=== PATIENT | male | born 1990 | race Hispanic/Latino ===

== ENCOUNTER 2016-09-01 12:50 | Emergency (ER) | payer OTHER ==
--- NOTE | 2016-09-01 13:41 | XRay Report ---
Left foot 3 views: Pain foot. Status post fall. Findings: No articular abnormality. No periosteal reaction, lytic lesion or soft tissue calcification. Impression: No evidence of acute fracture.
--- NOTE | 2016-09-01 15:14 | Emergency Department Report ---
Entered by GRETCHEN MARROQUIN, acting as scribe for GELA RUSH NP. Chief Complaint: Extremity Injury, Lower Stated Complaint: LEFT FOOT INJURY Time Seen by Provider: 09/01/16 15:03 - HPI History of Present Illness: Patient presents to the ED c/o of left foot pain secondary to an injury 2 weeks ago. Patient states that he was skateboarding and subsequently fell. Consumes moderate amounts of EtOH daily. PMHx consists of depression and notes he's non- compliant with depression medication. - ROS Review of Systems: All other systems reviewed are negative unless stated in HPI above. - Exam Vital Signs: Vital Signs 09/01/16 14:39 Temperature 98.2 F Pulse Rate 101 H Blood Pressure 120/76 O2 Sat by Pulse 100 Oximetry Physical Exam: General: alert and oriented x 3 Extremeties: good pulses, good capillary refill. Left lateral ankle tenderness. Left anterior toes tenderness. Neurologic: Absent: normal mood, Present: suicidal ideation, denies homicidal ideation; antalgic. Skin: no erythema or echhymosis on left ankle MSE screening note: Focused history and physical exam performed. Due to findings the following was ordered: THINKS DAILY OF KILLING SELF HAS PLAN OF HOW BUT WILL NOT TELL ME CRYING DAILY ETOH MOM STATES HE DRINKS UNTIL HE BLACKS OUT HURT L FOOT 2 W AGO SKATEBOARDING. NO POINT TENDERNESS XRAY NEG WALKING IF DANCING. PSYCH EVAL MOM AGREES HE NEEDS HELP. LEXAPRO/ RESTORIL/TRAZADONE/TEMPEZEM- PER PCP BUT NOT TAKING STATES MD ED Medical Decision Making - Medical Decision Making Patient seen by provider in triage area. Patient's x-ray results show no acute fracture. ED Disposition for MSE Condition: Stable This documentation as recorded by the scribeLOPEZ JASMINE,accurately reflects the service I personally performed and the decisions made by me,GELA TIDWELL NP.
--- NOTE | 2016-09-01 16:16 | Emergency Department Report ---
ED Psych HPI - General Chief Complaint: Extremity Injury, Lower Stated Complaint: LEFT FOOT INJURY Time Seen by Provider: 09/01/16 16:06 Source: patient Mode of arrival: Ambulatory - History of Present Illness MD Complaint: suicidal ideation, feels depressed Onset/Timin -: Gradual, week(s) Associated Psychiatric Symptoms: depression, suicidal ideation History of same: Yes Quality: constant Improves With: none Worsens With: none Context: recent alcohol abuse Associated Symptoms: denies: confusion, headache, shortness of breath, nausea, vomiting, syncope, insomnia Treatments Prior to Arrival: none If Self Harm: admits thoughts of - Related Data Home Medications Medication Instructions Recorded Confirmed Last Taken Escitalopram 10 mg DAILY 09/01/16 09/01/16 Unknown Omeprazole 40 mg DAILY 09/01/16 09/01/16 Unknown Temazepam 15 mg HS 09/01/16 09/01/16 Unknown traZODone 50 mg DAILY 09/01/16 09/01/16 Unknown Allergies Allergy/AdvReac Type Severity Reaction Status Date / Time No Known Allergies Allergy Unverified 09/01/16 14:48 ED Review of Systems ROS: Stated complaint: LEFT FOOT INJURY Other details as noted in HPI Constitutional: denies: chills, fever Eyes: denies: eye pain, eye discharge, vision change ENT: denies: ear pain, throat pain Respiratory: denies: cough, shortness of breath, wheezing Cardiovascular: denies: chest pain, palpitations Endocrine: no symptoms reported Gastrointestinal: denies: abdominal pain, nausea, diarrhea Genitourinary: denies: urgency, dysuria Musculoskeletal: denies: back pain, joint swelling, arthralgia Skin: denies: rash, lesions Neurological: denies: headache, weakness, paresthesias Psychiatric: depression, suicidal thoughts. denies: anxiety Hematological/Lymphatic: denies: easy bleeding, easy bruising ED Past Medical Hx - Past Medical History Previous Medical History?: Yes Hx Psychiatric Treatment: Yes (depression) - Surgical History Past Surgical History?: Yes Additional Surgical History: left calf - Social History Smoking Status: Current Every Day Smoker Substance Use Type: Alcohol, Marijuana - Medications Home Medications: Home Medications Medication Instructions Recorded Confirmed Last Taken Type Escitalopram 10 mg DAILY 09/01/16 09/01/16 Unknown History Omeprazole 40 mg DAILY 09/01/16 09/01/16 Unknown History Temazepam 15 mg HS 09/01/16 09/01/16 Unknown History traZODone 50 mg DAILY 09/01/16 09/01/16 Unknown History ED Physical Exam - General Limitations: No Limitations General appearance: alert, in no apparent distress - Head Head exam: Present: atraumatic, normocephalic - Eye Eye exam: Present: normal appearance - ENT ENT exam: Present: mucous membranes moist - Neck Neck exam: Present: normal inspection - Respiratory Respiratory exam: Present: normal lung sounds bilaterally. Absent: respiratory distress - Cardiovascular Cardiovascular Exam: Present: regular rate, normal rhythm. Absent: systolic murmur, diastolic murmur, rubs, gallop - GI/Abdominal GI/Abdominal exam: Present: soft, normal bowel sounds - Rectal Rectal exam: Present: deferred - Extremities Exam Extremities exam: Present: normal inspection - Back Exam Back exam: Present: normal inspection - Neurological Exam Neurological exam: Present: alert, oriented X3 - Psychiatric Psychiatric exam: Present: normal affect, depressed, flat affect, suicidal ideation - Skin Skin exam: Present: warm, dry, intact, normal color. Absent: rash ED Course Vital Signs 09/01/16 14:39 Temperature 98.2 F Pulse Rate 101 H Blood Pressure 120/76 O2 Sat by Pulse 100 Oximetry ED Medical Decision Making - Lab Data Result diagrams: 09/01/16 15:56 09/01/16 15:56 - Medical Decision Making Talk to psych lumber sticker and we agree on 1013 and treat him as inpatient, He is doing well, tolerating fluids , labs negative, will await placement Critical care attestation.: If time is entered above; I have spent that time in minutes in the direct care of this critically ill patient, excluding procedure time. ED Disposition Clinical Impression: Depression, Suicidal ideation Disposition: DC/TX PSY HOSP/PSY UNIT Is pt being admited?: No Does the pt Need Aspirin: No Condition: Good Time of Disposition: 17:27
[2016-09-01 16:24] LABS: Basophils % (Auto) 0.5 % (0.0-1.8); Eosinophils % (Auto) 1.2 % (0.0-4.3); Hematocrit 44.4 % (35.5-45.6); Hemoglobin 15.3 gm/dl (11.8-15.2); Mean Corpuscular HGB Conc 35 % (32-34); Mean Corpuscular Hemoglobin 31 pg (28-32); Mean Corpuscular Volume 91 fl (84-94); Platelet Count 192 K/mm3 (140-440); Red Blood Count 4.91 M/mm3 (3.65-5.03); Red Cell Distribution Width 12.6 % (13.2-15.2); White Blood Count 6.1 K/mm3 (4.5-11.0)
[2016-09-01 16:43] LABS: Alanine Aminotransferase 18 units/L (7-56); Albumin 4.7 g/dL (3.9-5); Albumin/Globulin Ratio 1.7 %; Alkaline Phosphatase 71 units/L (35-129); Anion Gap 17 mmol/L; Bilirubin,Total 0.9 mg/dL (0.1-1.2); Blood Urea Nitrogen 14 mg/dL (9-20); Calcium 9.4 mg/dL (8.4-10.2); Carbon Dioxide 28 mmol/L (22-30); Chloride 100.5 mmol/L (98-107); Glucose 93 mg/dL (75-100); Potassium 4.8 mmol/L (3.6-5.0); Sodium 141 mmol/L (137-145); Total Protein 7.4 g/dL (6.3-8.2)
[2016-09-01] MEDS ORDERED: ATIVAN ONE (18:08)
[2016-09-01] MEDS: ATIVAN IV ONE (18:17)
[2016-09-01 18:57] LABS: Urine Drugs of Abuse Note Disclamer
[2016-09-01 19:14] LABS: Bilirubin,Urine NEG (Negative); Blood,Urine NEG (Negative); Ketones,Urine NEG (Negative); Leukocyte Esterase,Urine NEG (Negative); Mucus,Urine FEW /HPF; Nitrite,Urine NEG (Negative); Protein,Urine <15 mg/dL mg/dL (Negative); Urobilinogen,Urine < 2.0 mg/dL (<2.0); WBC,Urine < 1.0 /HPF (0.0-6.0)
[2016-09-02 04:48] VITALS: BP 138/76
== END 2016-09-02 06:25 ==
LOC: ED 12:50
DX: R45.851 Suicidal ideations (principal); F32.9 Major depressive disorder, single episode, unspecified; M79.672 Pain in left foot; F17.200 Nicotine dependence, unspecified, uncomplicated
CPT/HCPCS: 36415; 73630; 80053; 80307; 81001; 84443; 85025; 96374; 99285; G0480; J2060; 80320

== ENCOUNTER 2016-10-24 03:44 | Emergency (ER) | payer SELFPAY ==
[2016-10-24 03:56] VITALS: BP 124/82
== END 2016-10-24 03:50 | disposition left against medical advice (07) ==
LOC: ED 03:44
DX: R45.851 Suicidal ideations (principal); F32.9 Major depressive disorder, single episode, unspecified; F17.200 Nicotine dependence, unspecified, uncomplicated; F12.90 Cannabis use, unspecified, uncomplicated; Z53.21 Procedure and treatment not carried out due to patient leaving prior to being seen by health care provider